=== PATIENT | male | born 1970 | race Caucasian/White ===

== ENCOUNTER 2021-07-20 13:50 | Emergency (ER) | payer OTHER ==
[~2021-07-20 13:50] MED LIST: MOTRIN600 MG PO
[2021-07-20 14:25] LABS: BASOPHIL 0.2 % (0-2); EOSINOPHIL 0.1 % (0-5); HCT 49.3 % (42.0-52.0); MCH 33.1 pg (25.0-31.0); MCHC 34.5 g/dL (32.0-36.0); MCV 95.9 fL (78.0-100.0); MPV 9.5 fL (6.0-9.5); NEUTROPHIL 87.3 % (41-80); NRBC 0; PLT 251 K/uL (150-400); RBC 5.14 M/uL (4.70-6.00); RDW 13.6 % (11.5-14.0); WBC 12.1 K/uL (4.0-10.5)
[2021-07-20 14:29] LABS: INR 0.97 (0.9-1.2); PROTHROMBIN TIME 12.3 SECONDS (11.8-13.4); PTT 25.1 SECONDS (24.4-34.7)
[2021-07-20 14:48] LABS: ALBUMIN 4.1 g/dL (3.4-5.0); BILIRUBIN - TOTAL 0.7 mg/dL (0.2-1.0); BUN/CREAT RATIO (CALC) 4.7 RATIO; CREATININE 0.85 mg/dL (0.67-1.17); GLOBULIN (CALCULATION) 3.6 g/dL; POTASSIUM 3.5 mmol/L (3.5-5.1); TOTAL PROTEIN 7.7 g/dL (6.4-8.2)
[2021-07-20] MEDS ORDERED: ONDANSETRON ODT4 MG PO (18:58)
[2021-07-20] MEDS ORDERED: PROTONIX 40MG T40 MG PO (18:58)
[2021-07-20] MEDS ORDERED: NORCO 5-325 TA1 EACH PO (18:58)
== END 2021-07-20 19:16 | disposition home or self-care (01) ==
LOC: FER 13:50
PROVIDERS: Emergency Medicine
DX: R07.89 Other chest pain (principal); K29.00 Acute gastritis without bleeding; F17.210 Nicotine dependence, cigarettes, uncomplicated; Z28.310 Unvaccinated for COVID-19
CPT/HCPCS: 36415; 71045; 71260; 80053; 83690; 83735; 84145; 84484; 85025; 85610; 85730; 93005; J2405; J7030; Q9967